=== PATIENT | female | born 1950 | race Caucasian/White ===

== ENCOUNTER 2020-10-29 04:48 | Inpatient (IN) | payer OTHER ==
[~2020-10-29] VITALS: Ht 162.6 cm; Wt 65.4 kg
[2020-10-29] VITALS (19 sets, daily range): BP systolic 134–172; BP diastolic 69–105
[~2020-10-29 04:48] MED LIST: CYMBALTA20 MG; NORCO 5-325 TA1 EACH PO; ZOFRAN ODT4 MG PO
[2020-10-29] MEDS ORDERED: CYMBALTA60 MG PO (04:58)
[2020-10-29] MEDS ORDERED: LOVASTATIN 20 M20 MG PO (04:59)
[2020-10-29] MEDS ORDERED: SPIRONOLACTONE100 M3 PO (05:00)
[2020-10-29] MEDS ORDERED: COMBIGAN EYE DR10 ML EA. EYE (05:01)
[2020-10-29] MEDS ORDERED: GLIMEPIRIDE4 MG PO (05:01)
[2020-10-29 05:16] LABS: EOSINOPHILS 5.3 % (0.0-3.0); HEMATOCRIT 42.6 % (37.0-47.0); LYMPHOCYTES 32.5 % (24.0-44.0); MCH 27.1 pg (26.0-34.0); MCHC 32.8 g/dL (28.0-37.0); MCV 82.7 fL (80.0-100.0); MONOCYTES 6.3 % (1.0-8.0); PLATELET COUNT 355 thou/uL (150-400); POLYS 54.9 % (36.0-66.0); RBC 5.16 mil/uL (4.20-5.00); RDW 15.5 % (10.5-14.5)
[2020-10-29 05:22] LABS: CALCIUM 8.9 mg/dL (8.5-10.1); CREATININE 1.4 mg/dL (0.6-1.0); POTASSIUM 3.9 mmol/L (3.5-5.1)
[2020-10-29 05:31] LABS: APTT 21.7 Seconds (24.5-32.8); INR 0.94; PROTIME 10.3 Seconds (9.3-11.4)
[2020-10-29 05:32] LABS: ALBUMIN 3.5 g/dL (3.4-5.0); TOTAL BILIRUBIN 0.2 mg/dL (0.2-1.0); TOTAL PROTEIN 7.4 g/dL (6.4-8.2); TROPONIN-I 0.25 ng/mL (<0.06)
[2020-10-29 07:27] LABS: CHOLESTEROL 224 mg/dL (<200); HDL CHOLESTEROL 44 mg/dL (>40); TC:HDL 5.1 Ratio (Not establshd); TRIGLYCERIDE 492 mg/dL (<150); VLDL 98 mg/dL (<40)
--- NOTE | 2020-10-29 09:02 | CATHLAB ---
[facility] [place] [address] INVASIVE PROCEDURE REPORT Name: KRISTY LORENZANA Room #: 213-P ADM IN M.R.#: [id number] Admission: 10/29/20 Attend Phys: Roberto Reid MD Discharge: Date of : 50 Report #: [id number] THIS REPORT FOR: cc: Kb Aguilar MD, Steven E. MD Lundgren, Craig H. MD [facility] ~ APPROVED REPORT Study performed: 10/29/2020 04:59:38 Patient Details Patient Status: ED Room #: The patient is a 69 year-old female Event Personnel Howie Lane Laboratory Immunologist, Ty Luna RN, Nilda Carr Monitor Susan De La Fuente RTR, Domingo howell Craig Laboratory Immunologist Procedures Performed Art Access - R femoral artery* Left Heart Cath w/or w/o Coronaries [id number] [facility] SHANNAN Place w/wo Plasty Single LAD [id number] SHANNAN Place w/wo Plasty Single CIRC [id number] Hemostasis w/ Mynx Indication Chest pain, STEMI Procedure Narrative The patient was brought emergently to the Cardiac Catheterization Laboratory and was prepped and draped in a sterile manner. The Right Groin^ was infiltrated with 1% Lidocaine subcutaneous anesthesia. A PINNACLE 6FR Sheath #[id number] sheath was inserted into the RFA^. Coronary angiography was performed using coronary diagnostic catheters. The right coronary system was accessed and visualized with a JR4 catheter. The left coronary system was accessed and visualized with a JL4 catheter. The left ventricle was accessed and visualized with a ANGLE PIG catheter. Left ventriculogram was performed in 30 degree projection. There was no hematoma. Intraoperative Conscious Sedation Sedation start time: 529 Case end Time: 633 Fluoro Time: 12.21 minutes Dose: DAP 52087.80 cGycm2 1681 mGy [facility] [place] [address] INVASIVE PROCEDURE REPORT Name: KRISTY LORENZANA Room #: 213-P [facility] IN M.R.#: [id number] Admission: 10/29/20 Attend Phys: Ashlie Monzon Discharge: Date of : 50 Report #: [id number] Contrast Type and Amount: Visipaque 385 ml Coronary Angiography The patient's coronary anatomy is left dominant. Diagnostic Cath Left Main Large, normal left main LAD Occluded LAD at its origin. After stenting of the ostium of the LAD, mild-moderate 30-40% scattered proximal and mid vessel LAD plaquing noted Circumflex Large, dominant circumflex. Mild 20 to 30% proximal plaquing 90% distal circumflex stenosis before the origin of the posterior descending OM1 Large OM 1 with mild proximal plaquing OM2 Moderately large second marginal branch, angiographically normal L PDA Normal posterior descending Right Coronary Small nondominant right coronary, 30-40% mid vessel plaquing Left Ventriculography The left ventricle is mildly dilated in size with abnormal contractility. The left ventricular ejection fraction is estimated to be 40%. Left ventricular wall motion abnormalities are present. There is no mitral insufficiency. Anterior apical hypokinesis Hemodynamics The aortic pressure is 183/104 mmHg with a mean of 95 mmHg. The left ventricular pressure is 175/42 mmHg with a mean of mmHg. The left ventricular end diastolic pressure is 44 mmHg. There was no gradient across the aortic valve upon pullback. PCI Technique Lesion Anticoagulation was achieved with Heparin, Integrilin. Patient was preloaded with Effient. Percutaneous coronary intervention was performed on the proximal left anterior descending artery segment. The lesion stenosis prior to intervention was 100% with STEPH 0 flow. A LAUNCHER 6FR EBU 3.5 #[id number] Guide Catheter was used to engage the LAD ostium. A Luge Wire .014 x 182CM #[id number] Interventional Guidewire was used to cross the lesion. BALLOON DILATION A Balloon catheter Euphora RX 2.5 x 12 #[id number] was inserted and inflated up to 12.00atm for 30seconds. [facility] [address] [place] [address] INVASIVE PROCEDURE REPORT Name: KRISTY LORENZANA Room #: 213-P [facility] IN M.R.#: [id number] Admission: 10/29/20 Attend Phys: Ashlie Monzon Discharge: Date of : 50 Report #: [id number] STENT DEPLOYMENT A stent RESOLUTE TANNA RX 3.0 X 15 #[id number] was inserted and inflated up to 14.00atm for 33seconds. POST STENT DEPLOYMENT BALLOON DILATION A Balloon catheter TREK NC RX 3.0 X 15 #[id number] was inserted and inflated up to 20.00atm for 35seconds. Additional Inflation: 20.00atm for 15seconds. Final angiography reveals 0 % stenosis with STEPH 3 flow. PCI Technique Lesion 2 Percutaneous Coronary Intervention was performed on the distal circumflex artery segment. The lesion stenosis prior to intervention was 90% with STEPH 3 flow. A LAUNCHER 6FR EBU 3.5 #[id number] Guide Catheter was used to engage the Left main ostium. A Luge Wire .014 x 182CM #[id number] Interventional Guidewire was used to cross the lesion. Balloon Dilation A Balloon catheter Euphora RX 2.5 x 12 #[id number] was inserted and inflated up to 8atm for 20seconds. Stent Deployment A stent TREK NC RX 2.5 X 12 #[id number] was inserted and inflated up to 16atm for 28seconds. Post Stent Deployment Balloon Dilation A Balloon catheter TREK NC RX 2.5 X 12 #[id number] was inserted and inflated up to 18atm for 34seconds. Final angiography reveals 0 % stenosis with STEPH 3 flow. Conclusion 1. Moderate left ventricular dysfunction with anterior and apical hypokinesis. EF 40% 2. Acute systolic heart failure 3. Normal left main 4. Occluded ostial LAD stented with a 3.0 x 15 mm Resolute medicated stent. STEPH-3 flow reestablished 5. Dominant circumflex with 90% distal stenosis, stented with a 2.5 x 12 mm Resolute stent 6. Small, nondominant right coronary with moderate plaquing [facility] [address] [place] [address] INVASIVE PROCEDURE REPORT Name: KRISTY LORENZANA Room #: 213-P ADM IN M.R.#: [id number] Admission: 10/29/20 Attend Phys: Ashlie Monzon Discharge: Date of : 50 Report #: [id number] Recommendations Smoking Cessation Cardiac Rehabilitation Referral Aggressive Medical Therapy <ELECTRONICALLY SIGNED> By: Howie Lane MD, [facility] 10/29/[address] MD, FACC /INF
--- NOTE | 2020-10-29 09:53 | HC ---
[facility] [place] [address] [place] [address] CONSULTATION Name: KRISTY LORNEZANA Room #: 213-P ADM IN M.R.#: [id number] Admission: 10/29/20 Attend Phys: Roberto Reid MD Discharge: Date of : 50 Report #: [id number] THIS REPORT FOR: cc: Kb Aguilar MD,Kb Lane,Howie Hauser MD [facility] ~ DATE OF SERVICE: 10/29/2020 REASON FOR CONSULTATION: Chest pain. HISTORY OF PRESENT ILLNESS: The patient is a 69-year-old smoker with diabetes, who presented with midsternal chest pain. This was described as a pressure-like sensation, starting about an hour ago. Paramedics were summoned and an EKG in the field demonstrated anteroseptal ST segment elevation and reciprocal inferior ST depression. Code STEMI was activated. She has ongoing midsternal chest pain. She denies orthopnea or paroxysmal nocturnal dyspnea. She has had nausea and vomiting with the discomfort. ALLERGIES: SHE IS ALLERGIC TO CODEINE, MORPHINE AND DEMEROL. MEDICATIONS: Include glimepiride 4 mg daily, lovastatin 20 mg daily, spironolactone 100 mg daily, Cymbalta 60 mg daily, and Combigan eyedrops. PAST MEDICAL HISTORY: Medical records have been reviewed and include a history of remote abdominal surgery, nephrolithiasis, diabetes, hypertension, abdominal adhesions requiring adhesiolysis. SOCIAL HISTORY: She is a smoker. Retired, worked at [employer]. FAMILY HISTORY: Unremarkable for premature coronary artery disease. REVIEW OF SYSTEMS: All systems negative except as that noted above. PHYSICAL EXAMINATION: GENERAL: Reveals an anxious woman in moderate distress. VITAL SIGNS: Blood pressure is 133/92, heart rate of 79 and regular, saturations are 98% on room air. HEENT: There are neither xanthelasma, subcutaneous xanthomata, oral mucosal or digital cyanosis or kyphoscoliosis present. CHEST: Reveals clear lung salcido. CARDIAC: Regular rate and rhythm with normal S1 and distant heart tones. ABDOMEN: Soft and nontender. EXTREMITIES: Without cyanosis, clubbing or edema. Radial pulses are 2+. NEUROLOGIC: She is alert with a nonfocal exam. [facility] [address] [place] [address] CONSULTATION Name: KRISTY LORENZANA Room #: [address] [place] [address] IN .R.#: [id number] Admission: 10/29/20 Attend Phys: Roberto Reid MD Discharge: Date of : 50 Report #: [id number] LABORATORY DATA: EKG as detailed above. Lab work and radiographic studies remain pending. IMPRESSION: 1. Acute anterior myocardial infarction 2. Acute systolic heart failure. 3. Hypertension. 4. Diabetes. 5. Tobacco dependency. RECOMMENDATIONS: 1. Urgent coronary angiography. 2. Therapy with anticoagulants and antiplatelet therapy. 3. The angiographic procedure was discussed in detail including its associated risks. After a thorough discussion of the procedure, its risks and alternatives and after answering her questions, she is agreeable to proceeding. 65cc time. Coordination of care with staff, ED, discussion with family <ELECTRONICALLY SIGNED> By: Howie Lane MD, FACC 10/29/[address] MD, FACC /nt
--- NOTE | 2020-10-29 15:05 | NUR ---
PT ADMITED FROM ART TEACHER. ADMISSION HX AND ASSESSMENT COMPLETED. RIGHT GROIN INCISION C/D/I. NO HEMATOMA NOTED. POST OP INSTRUCTIONS GIVEN TO PT. PT VERBERLISED UNDERSTANDING.
--- NOTE | 2020-10-29 15:29 | EKG ---
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: GER : 1950 Requested By: Cheng Brock Order Number: [id number] MD: Olivier Shipman Measurements Intervals [place] Rate: 81 P: 61 MD: 164 QRS: 16 QRSD: 138 T: 19 QT: 444 QTc: 516 Interpretive Statements Sinus rhythm Ventricular premature complex LAE, consider biatrial enlargement Right bundle branch block Anteroseptal infarct, recent Lateral leads are also involved Compared to ECG 03/13/2000 11:31:55 Ventricular premature complex(es) now present Right bundle-branch block now present Myocardial infarct finding now present T-wave abnormality no longer present Electronically Signed On 10-29-2020 15:29:30 CDT by Olivier Shipman [email or web address] <ELECTRONICALLY SIGNED> By: Olivier Shipman MD, [facility] 10/29/20 1529 0450 0450 Olivier Shipman MD, [facility] /EPI
--- NOTE | 2020-10-29 15:32 | EKG ---
[place] [address] [address] [address] [facility] [place] [address] ELECTROCARDIOGRAM REPORT Name: KRISTY LORENZANA Room #: 213-P ADM IN M.R.#: [id number] Admission: 10/29/20 Attend Phys: Roberto Reid MD Discharge: Date of : 50 Report #: [id number] [facility] Test Date: 2020-10-29 Test Time: 13:55:24 Pat Name: KRISTY LORENZANA Department: Room: 213 P Gender: F Research Archaeologist: LORENZO : 1950 Requested By: Howie Lane Order Number: [id number] : Olivier Shipman Measurements Intervals [place] Rate: 79 P: 52 VT: 147 QRS: 85 QRSD: 128 T: 107 QT: 425 QTc: 488 Interpretive Statements Sinus rhythm Right bundle branch block Probable anteroseptal infarct, recent Compared to ECG 10/29/2020 04:50:54 Ventricular premature complex(es) no longer present Myocardial infarct finding still present Electronically Signed On 10-29-2020 15:31:43 CDT by Olivier Shipman [email or web address] <ELECTRONICALLY SIGNED> By: Olivier Shipman MD, [facility] 10/29/20 1531 1355 1355 Olivier Shipman MD, [facility] /EPI
[2020-10-29 22:06] LABS: GLYCOHEMOGLOBIN (HGB A1C) 7.9 % (4.8-5.6)
[2020-10-30 03:27] LABS: ABSOLUTE NEUTROPHILS 16.1 thou/uL (1.4-8.2); BASOPHILS 0.3 % (0.0-2.0); EOSINOPHILS 0.7 % (0.0-3.0); HEMATOCRIT 39.6 % (37.0-47.0); HEMOGLOBIN 12.5 gm/dL (12.0-15.0); LYMPHOCYTES 11.3 % (24.0-44.0); MCH 26.2 pg (26.0-34.0); MCHC 31.7 g/dL (28.0-37.0); MCV 82.8 fL (80.0-100.0); MONOCYTES 5.7 % (1.0-8.0); PLATELET COUNT 289 thou/uL (150-400); RBC 4.79 mil/uL (4.20-5.00); RDW 15.1 % (10.5-14.5); WBC 19.7 thou/uL (4.0-11.0)
[2020-10-30 03:39] VITALS: BP 140/78
[2020-10-30 03:57] LABS: ALBUMIN 3.2 g/dL (3.4-5.0); CALCIUM 8.4 mg/dL (8.5-10.1); CREATININE 1.1 mg/dL (0.6-1.0); TOTAL BILIRUBIN 0.6 mg/dL (0.2-1.0); TOTAL PROTEIN 6.7 g/dL (6.4-8.2)
[2020-10-30 04:13] LABS: TROPONIN-I 76.37 ng/mL (<0.06)
--- NOTE | 2020-10-30 05:38 | NUR ---
PATIENT CARES WERE ASSUMED AT SHIFT CHANGE. PATIENT WAS ASSESSED AND MEDS WERE PASSED. PATIENT IS UP TO BRP'S WITH ONE ASSISTT. PATIENT C/O FEELING VERY TIRED. SHE DID SLEEP THE MAJORITY OF THIS SHIFT. PATIENT WOULD BENEFIT FROM ANOTHER NIGHTS STAY. ROUNDS WERE DONE. PATIENT CONTINUES TO PROGRESS TOWARDS HER DISCHARGE GOALS.
[2020-10-30 07:36] VITALS: BP 142/83
--- NOTE | 2020-10-30 08:15 | NUR ---
ASSUMMED CARE OF THIS PATIENT FROM THE NIGHT NURSE, KRISTY KHAN. PATIENT C/O GENERALIZED WEAKNESS AND CHEST PAIN THROUGH TO HER BACK, WORSE WITH PALPATION. INTERMITTENTLY DIAPHORETIC. EKG DONE. WILL CONTINUE TO MONITOR.
[2020-10-30] MEDS ORDERED: EFFIENT10 MG PO (08:46)
[2020-10-30] MEDS ORDERED: BAYER CHEWABLE81 MG PO (08:46)
[2020-10-30] MEDS ORDERED: CARVEDILOL12.5 MG PO (08:46)
[2020-10-30] MEDS ORDERED: LISINOPRIL10 MG PO (08:46)
[2020-10-30] MEDS ORDERED: LIPITOR40 MG PO (08:55)
--- NOTE | 2020-10-30 10:00 | NUR ---
JOSELIN PRESS OPERATOR FOR CARDIOLOGY NOTIFIED OF PATIENT'S STATUS AND IN TO EXAMINE PATIENT. PATIENT ASSISTED BACK TO BED AND BEDSIDE ECHO IN PROGRESS.
--- NOTE | 2020-10-30 10:52 | 2DMMODE ---
[facility] [place] [address] 2 D/M-MODE ECHOCARDIOGRAM Name: KRISTY LORENZANA Room #: 213-P ADM IN M.R.#: [id number] Admission: 10/29/20 Attend Phys: Roberto Reid MD Discharge: Date of : 50 Report #: [id number] THIS REPORT FOR: cc: Kb Aguilar MD, Steven E. MD Lundgren, Craig H. MD [facility] ~ APPROVED REPORT Study performed: 10/30/2020 09:56:04 EXAM: Comprehensive 2D, Doppler, and color-flow Echocardiogram Patient Location: Bedside Room #: 213 Status: routine BSA: 1.72 HR: 84 bpm BP: 142/83 mmHg Rhythm: NSR Other Information Study Quality: Good Indications STEMI. Status post PCI. 2D Dimensions RVDd: 27.01 mm IVSd: 10.93 (7-11mm) LVOT Diam: 18.80 (18-24mm) LVDd: 37.96 mm PWd: 9.59 (7-11mm) LVDs: 28.94 (25-40mm) Aortic Root: 33.21 mm Volumes Left Atrial Volume (Systole) Single Plane 4CH: 23.72 mL Single Plane 2CH: 28.19 mL LA ESV Index: 16.00 mL/m2 Aortic Valve AoV Peak Carlos.: 1.43 m/s AO Peak Gr.: 8.22 mmHg LVOT Max P.48 mmHg LVOT Max V: 1.06 m/s SIMA Vmax: 2.05 cm2 [facility] [address] [address] 2 D/M-MODE ECHOCARDIOGRAM Name: KRISTY LORENZANA Room #: 213-P ADM IN M.R.#: [id number] Admission: 10/29/20 Attend Phys: Ashlie Monzon Discharge: Date of : 50 Report #: [id number] Mitral Valve E/A Ratio: 0.7 MV Decel. Time: 169.24 ms MV E Max Carlos.: 0.87 m/s MV A Carlos.: 1.30 m/s MV PHT: 49.08 ms IVRT: 89.97 ms Pulmonary Valve PV Peak Carlos.: 1.14 m/s PV Peak Gr.: 5.24 mmHg Pulmonary Vein P Vein S: 0.72 m/s P Vein A: 0.49 m/s P Vein D: 0.39 m/s P Vein A Dur.: 141.9 msec P Vein S/D Ratio: 1.85 Tricuspid Valve TR Peak Carlos.: 2.47 m/s RAP Estimate: 5.00 mmHg TR Peak Gr.: 24.47 mmHg PA Pressure: 29.00 mmHg Left Ventricle The left ventricle is normal size. There is normal left ventricular wall thickness. Left ventricular systolic function is moderately decreased. Mid to distal septal and anterior wall hypokinesis. LVEF 35-40%. Mild diastolic dysfunction Right Ventricle The right ventricle is normal size. The right ventricular systolic function is normal. Atria The left atrium size is normal. The right atrium size is normal. Aortic Valve The aortic valve is normal in structure. No aortic regurgitation is present. There is no aortic valvular stenosis. Mitral Valve The mitral valve is normal in structure. There is no mitral valve regurgitation noted. No evidence of mitral valve stenosis. Tricuspid Valve The tricuspid valve is normal in structure. Trace tricuspid regurgitation. Estimated PAP is 30mmHg. [facility] [address] [place] [address] 2 D/M-MODE ECHOCARDIOGRAM Name: KRISTY LORENZANA Room #: 213-P ADM IN M.R.#: [id number] Admission: 10/29/20 Attend Phys: Ashlie Monzon Discharge: Date of : 50 Report #: [id number] Pulmonic Valve The pulmonary valve is normal in structure. Trace pulmonic regurgitation. Great Vessels The aortic root is normal in size. The ascending aorta is normal in size. IVC is normal in size and collapses >50% with inspiration. Pericardium There is no pericardial effusion. <Conclusion> Left ventricular systolic function is moderately decreased. Mid to distal septal and anterior wall hypokinesis. LVEF 35-40%. Mild diastolic dysfunction The aortic valve is normal in structure. No aortic regurgitation or stenosis The mitral valve is normal in structure. No mitral valve regurgitation. Trace tricuspid regurgitation. Estimated pulmonary artery pressure of 30mmHg. There is no pericardial effusion. <ELECTRONICALLY SIGNED> By: Howie Lane MD, FACC 10/30/[address] MD, FACC /INF
[2020-10-30 11:25] VITALS: BP 114/55
--- NOTE | 2020-10-30 14:52 | EKG ---
[address] [address] [place] [address] ELECTROCARDIOGRAM REPORT Name: KRISTY LORENZANA Room #: 213- ADM IN M.R.#: [id number] Admission: 10/29/20 Attend Phys: Roberto Reid MD Discharge: Date of : 50 Report #: [id number] [facility] Test Date: 2020-10-30 Test Time: 07:38:51 Pat Name: KRISTY LORENZANA Department: Room: 213 P Gender: F Guest Services Attendant: CORA : 1950 Requested By: Howie Lane Order Number: [id number] MD: Alan Tristan Measurements Intervals [place] Rate: 83 P: 46 MT: 140 QRS: 72 QRSD: 126 T: 92 QT: 425 QTc: 500 Interpretive Statements Sinus rhythm Right bundle branch block Probable anteroseptal infarct, recent Lateral leads are also involved Compared to ECG 10/29/2020 13:55:24 No significant changes Electronically Signed On 10-30-2020 14:52:37 CDT by Alan Tristan [email or web address] <ELECTRONICALLY SIGNED> By: Alan Tristan MD 10/30/20 1452 7 7 Alan Tristan MD /JAS
[2020-10-30 15:23] VITALS: BP 120/63
--- NOTE | 2020-10-30 17:11 | NUR ---
PATIENT IS PROGRESSING TOWARDS OUTCOME GOALS SHE IS LOOKING AND FEELING BETTER SLEEPING THIS AFTERNOON. COLOR PINK AND SKIN IS WARM AND DRY.
[2020-10-30 19:49] VITALS: BP 110/66
[2020-10-30 23:20] VITALS: BP 108/63
[2020-10-31 04:24] VITALS: BP 129/63
[2020-10-31 05:16] LABS: CALCIUM 8.6 mg/dL (8.5-10.1); CREATININE 1.2 mg/dL (0.6-1.0); POTASSIUM 4.3 mmol/L (3.5-5.1)
[2020-10-31 07:20] VITALS: BP 104/56
[2020-10-31 11:45] VITALS: BP 101/61
[2020-10-31 15:30] VITALS: BP 145/58
--- NOTE | 2020-10-31 17:45 | NUR ---
ASSUMED CARE SHIFT CHANGE. ASSESSMENTS CHARTED.MEDS GIVEN PER SEP. VSS BP LOW THIS AM. BP MEDS HELD. BP OK EVENING. DENIES CP, SOB. R GROIN SITE NITA BALND CDI NO HEMATOMA. BRUISING NOTED. BLOOD SUGAR LOW IN 60S PT ASYMPTOMATIC, JUICE GIVEN, BLOOD SUGARS STABILIZED. PLAN FOR POSSIBLE DC TOMORRW. CONTINUING POC. WILL PASS ON REPORT TO SULEIMAN KHAN.
[2020-11-01] VITALS (7 sets, daily range): BP systolic 78–120; BP diastolic 49–66
--- NOTE | 2020-11-01 02:29 | NUR ---
PT DENIES ANY PAIN THIS EVENING LOOKING TIRED LIKE SHE HASNT SLEPT SLEEPING PILL GIVEN TO AIR WITH SLEEPING. NEWLY DIABETIC BLOOD SUGAR WAS LOW SO SNACK PROVIDED. LUNGS CLEAR RIGHT GROIN SITE BRUISING NOTED AND OUTLINED NO NEW BRUISING. CALL LIGHT WITHIN REACH IF NEEDS ASSISTANCE PER NURSING.
[2020-11-01 05:20] LABS: ABSOLUTE NEUTROPHILS 10.5 thou/uL (1.4-8.2); BASOPHILS 0.4 % (0.0-2.0); EOSINOPHILS 2.7 % (0.0-3.0); HEMATOCRIT 35.4 % (37.0-47.0); HEMOGLOBIN 11.5 gm/dL (12.0-15.0); LYMPHOCYTES 15.8 % (24.0-44.0); MCH 26.5 pg (26.0-34.0); MCHC 32.4 g/dL (28.0-37.0); MCV 81.7 fL (80.0-100.0); MONOCYTES 5.4 % (1.0-8.0); PLATELET COUNT 252 thou/uL (150-400); POLYS 75.7 % (36.0-66.0); RBC 4.33 mil/uL (4.20-5.00); RDW 15.1 % (10.5-14.5); WBC 13.9 thou/uL (4.0-11.0)
[2020-11-01 05:40] LABS: ALBUMIN 2.8 g/dL (3.4-5.0); CALCIUM 8.7 mg/dL (8.5-10.1); CREATININE 1.3 mg/dL (0.6-1.0); MAGNESIUM 2.2 mg/dL (1.8-2.4); PHOSPHORUS 3.7 mg/dL (2.5-4.9); POTASSIUM 3.8 mmol/L (3.5-5.1); TOTAL BILIRUBIN 0.5 mg/dL (0.2-1.0); TOTAL PROTEIN 6.6 g/dL (6.4-8.2)
--- NOTE | 2020-11-01 11:04 | EKG ---
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
--- NOTE | 2020-11-01 17:59 | NUR ---
RECEIVED PT'S CARE AROUND 0715; PT. ON BED; RESTING WITH EYES CLOSED; EQUAL CHEST RISING; SR ON THE MONITOR; BG LOW DURING AM; JUICE PROVIDED; ENCOURAGE TO EAT BREAKFAST; DURING AM ASSESSMENT PT. AOX4; NO C/O PAIN; SBP ON THE 90s; BP MEDICATION HOLD; STAND UP ORTHOSTATIC BP ON THE 70s; PHYSICIAN AWARE; PIERCE HOSE ORDERED; PT. EDUCATED ABOUT EATING BETWEEN MEALS; EDUCATED ABOUT WEARING SUCKS DURING AMBULATION; ST. UNDERSTANDING; BG 51 DURING THE EVENING; PHYSICIAN NOTIFIED; ORDERS ON PLACED; FLUIDS STARTED; FALL PRECAUTIONS APPLIED; PT. NOTIFIED AND EDUCATED ABOUT CALLING BEFORE GETTING UP FROM; ST. UNDERSTANDING; DURING THE EVENING SBP ON THE 120s; SCHEDULED BP GIVEN; ASSESSMENT CHARGED; FOLLOWING POC; WILL PASS ON REPORT;
[2020-11-02] VITALS (7 sets, daily range): BP systolic 76–116; BP diastolic 50–81
[2020-11-02 04:51] LABS: ABSOLUTE NEUTROPHILS 7.3 thou/uL (1.4-8.2); BASOPHILS 0.4 % (0.0-2.0); EOSINOPHILS 4.3 % (0.0-3.0); HEMATOCRIT 34.6 % (37.0-47.0); HEMOGLOBIN 11.3 gm/dL (12.0-15.0); LYMPHOCYTES 20.2 % (24.0-44.0); MCH 26.7 pg (26.0-34.0); MCHC 32.7 g/dL (28.0-37.0); MCV 81.8 fL (80.0-100.0); PLATELET COUNT 261 thou/uL (150-400); POLYS 67.1 % (36.0-66.0); RBC 4.22 mil/uL (4.20-5.00); RDW 15.2 % (10.5-14.5); WBC 10.9 thou/uL (4.0-11.0)
[2020-11-02 05:01] LABS: CALCIUM 8.4 mg/dL (8.5-10.1); CREATININE 1.2 mg/dL (0.6-1.0); MAGNESIUM 2.1 mg/dL (1.8-2.4); PHOSPHORUS 4.7 mg/dL (2.5-4.9)
--- NOTE | 2020-11-02 07:37 | NUR ---
PATIENTS CARES WERE ASSUMED AT SHIFT CHANGE. PATIENT WAS ASSESSED AND MEDS WERE PASSSED. PATIENTREFUSED THE STOOL SOFTNER AND THE INSULIN THAT WAS ORDERED, A SNACK AT HS WAS GIVEN TO PREVENT A DROP IN HER ACCU CHECK IN THE MORNING. ROUNDING WAS DONE. THE BED ALARM IS ON.
--- NOTE | 2020-11-02 16:34 | NUR ---
ASSUMED CARE SHIFT CHANGE. ASSESSMENTS CHARTED.MEDS GIVEN PER MAR. VSS DENIES PAIN. DENIES CP/SOB. RIGHT GROIN REMAINS BRUISED. NO HEMATOMA. BP LOW THIS AM, BP MEDS HELD. PHYSICIAN NOTIFIED, BP STABLE. PLAN FOR REHAB EVAL, POSSIBLE 5N. DENIES NEEDS. CONTINUING POC. WILL PASS ON REPORT TO SULEIMAN KHAN.
--- NOTE | 2020-11-02 17:18 | NUR ---
met with patient who admits with chest pain. Patient reports she lives in home with son and granddtr. Granddtr is 6 years old. 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 She is too high level for acute rehab. Patient wants to return home at dc. She is hoping to dc home tomorrow. She is open to home health care. casemgt following.
[2020-11-03 04:33] VITALS: BP 101/45
--- NOTE | 2020-11-03 05:18 | NUR ---
PATIENTS CARE WAS ASSUMED AT SHIFT CHANGE. PATIENT WAS ASSESSED AND MEDS WERE PASSED. PATIENT IS VERY PLEASENT LADY. PATIENT DENIES ANY CHEST PAIN AT THIS TIME. ACCU CHECKS APPERS TO STABLE OUT. PATIENT PROGRESSING WELL TOWARDS DISCHARGE. ROUNDS WERE DONE. THE BED ALARM IS ON THIS SHIFT.
[2020-11-03] MEDS ORDERED: COREG6.25 MG PO (07:48)
[2020-11-03] MEDS ORDERED: LISINOPRIL5 MG PO (07:48)
[2020-11-03 08:00] VITALS: BP 99/62
--- NOTE | 2020-11-03 11:13 | NUR ---
AAOX4. DENIES CP, SOA. SR PER TELE. DR. ALEJANDRE DISCHARGING TO HOME.
--- NOTE | 2020-11-03 11:18 | NUR ---
AAO4. DENIES CP, SOA. DR. ALEJANDRE DISCHARGING TO HOME.
[2020-11-03] MEDS ORDERED: GLUCOTROL5 MG PO (11:19)
[2020-11-03 11:50] VITALS: BP 102/51
[2020-11-03 12:19] VITALS: BP 102/51
[2020-11-03 12:20] VITALS: BP 102/51
[2020-11-03 12:55] VITALS: BP 102/51
--- NOTE | 2020-11-03 12:59 | NUR ---
Spoke with patient plan for home with HH care. Verified address and PCP. patient with no preference of home health agency.
--- NOTE | 2020-11-03 14:50 | NUR ---
REFERRAL FAXED TO [facility] HH SPOKE WITH FEI IN INTAKE SHE CAN ACCEPT. FAXED DC ORDERS/SUMMARY TO [facility] SPOKE WITH FEI SHE RECEIVED ORDERS AND WILL ARRANGE VISITS WITH PT.
== END 2020-11-03 14:22 | disposition home health service (06) | DRG 246 ==
LOC: ER 04:48 → EROBS 05:19 → 2N 05:26
PROVIDERS: Emergency Medicine; Internal Medicine; Nurse Practitioner; ADMIT Hospitalist; ATTEND Hospitalist
PROC: B215YZZ Fluoroscopy of Left Heart using Other Contrast (ICD-10-PCS; principal; 2020-10-29)
PROC: B211YZZ Fluoroscopy of Multiple Coronary Arteries using Other Contrast (ICD-10-PCS; principal; 2020-10-29)
PROC: 027135Z Dilation of Coronary Artery, Two Arteries with Two Drug-eluting Intraluminal Devices, Percutaneous Approach (ICD-10-PCS; principal; 2020-10-29)
PROC: 4A023N7 Measurement of Cardiac Sampling and Pressure, Left Heart, Percutaneous Approach (ICD-10-PCS; principal; 2020-10-29)
DX: I21.09 ST elevation (STEMI) myocardial infarction involving other coronary artery of anterior wall (principal); I50.23 Acute on chronic systolic (congestive) heart failure; N17.9 Acute kidney failure, unspecified; I13.0 Hypertensive heart and chronic kidney disease with heart failure and stage 1 through stage 4 chronic kidney disease, or unspecified chronic kidney disease; I47.2 Ventricular tachycardia; I25.5 Ischemic cardiomyopathy; E78.00 Pure hypercholesterolemia, unspecified; E78.5 Hyperlipidemia, unspecified; E11.22 Type 2 diabetes mellitus with diabetic chronic kidney disease; K21.9 Gastro-esophageal reflux disease without esophagitis; F17.210 Nicotine dependence, cigarettes, uncomplicated; N18.9 Chronic kidney disease, unspecified; I25.10 Atherosclerotic heart disease of native coronary artery without angina pectoris; I95.1 Orthostatic hypotension; E11.649 Type 2 diabetes mellitus with hypoglycemia without coma; Z20.822 Contact with and (suspected) exposure to COVID-19; Z85.43 Personal history of malignant neoplasm of ovary; Z90.710 Acquired absence of both cervix and uterus; Z79.84 Long term (current) use of oral hypoglycemic drugs; Z79.899 Other long term (current) drug therapy; Z88.5 Allergy status to narcotic agent; Z88.8 Allergy status to other drugs, medicaments and biological substances
CPT/HCPCS: 10081

== ENCOUNTER → 2020-11-27 | Outpatient (CLI) | payer OTHER ==
[~2020-11-27] MED LIST changes: +BAYER CHEWABLE81 MG PO; +CARVEDILOL12.5 MG PO; +COMBIGAN EYE DR10 ML EA. EYE; +COREG6.25 MG PO; +CYMBALTA60 MG PO; +EFFIENT10 MG PO; +GLIMEPIRIDE4 MG PO; +GLUCOTROL5 MG PO; +LIPITOR40 MG PO; +LISINOPRIL10 MG PO; +LISINOPRIL5 MG PO; +LOVASTATIN 20 M20 MG PO; +SPIRONOLACTONE100 M3 PO
== END ==
LOC: SJCVC 13:06
PROVIDERS: ATTEND Internal Medicine
DX: R94.31 Abnormal electrocardiogram [ECG] [EKG] (principal); I45.10 Unspecified right bundle-branch block; I25.10 Atherosclerotic heart disease of native coronary artery without angina pectoris; I25.5 Ischemic cardiomyopathy; E78.5 Hyperlipidemia, unspecified; E11.51 Type 2 diabetes mellitus with diabetic peripheral angiopathy without gangrene; I25.2 Old myocardial infarction; F17.210 Nicotine dependence, cigarettes, uncomplicated; Z79.82 Long term (current) use of aspirin; Z79.899 Other long term (current) drug therapy

== ENCOUNTER → 2020-12-23 | Outpatient (CLI) | payer OTHER | LOC: SJCVCIMAG 08:18 | PROVIDERS: ATTEND Nuclear Medicine Nuclear Cardiology | DX: I65.23 Occlusion and stenosis of bilateral carotid arteries (principal); M79.661 Pain in right lower leg; M79.662 Pain in left lower leg ==

== ENCOUNTER → 2020-12-29 | Outpatient (CLI) | payer OTHER ==
[~2020-12-29] MED LIST changes: +PROTONIX40 M2 PO
== END ==
LOC: SJCVC 09:05
PROVIDERS: ATTEND Nuclear Medicine Nuclear Cardiology
DX: I77.9 Disorder of arteries and arterioles, unspecified (principal); I25.10 Atherosclerotic heart disease of native coronary artery without angina pectoris; E78.00 Pure hypercholesterolemia, unspecified; I10 Essential (primary) hypertension; F17.200 Nicotine dependence, unspecified, uncomplicated; E11.9 Type 2 diabetes mellitus without complications; I77.811 Abdominal aortic ectasia; I73.9 Peripheral vascular disease, unspecified; I25.2 Old myocardial infarction; E78.5 Hyperlipidemia, unspecified; Z88.5 Allergy status to narcotic agent; Z88.0 Allergy status to penicillin; Z79.82 Long term (current) use of aspirin; Z79.84 Long term (current) use of oral hypoglycemic drugs; Z79.899 Other long term (current) drug therapy; Z95.5 Presence of coronary angioplasty implant and graft

== ENCOUNTER → 2020-12-30 | Outpatient (CLI) | payer OTHER ==
[~2020-12-30] VITALS: Ht 160 cm; Wt 68.5 kg
[2020-12-30 08:32] VITALS: BP 130/75
[2020-12-30 08:34] LABS: HEMATOCRIT 37.2 % (37.0-47.0); HEMOGLOBIN 12.3 gm/dL (12.0-15.0); MCV 81.8 fL (80.0-100.0); RBC 4.55 mil/uL (4.20-5.00); RDW 15.1 % (10.5-14.5); WBC 8.3 thou/uL (4.0-11.0)
[2020-12-30 08:52] LABS: CREATININE 1.7 mg/dL (0.6-1.0); POTASSIUM 4.4 mmol/L (3.5-5.1)
== END | disposition home or self-care (01) ==
LOC: CATH 07:44
PROVIDERS: ATTEND Nuclear Medicine Nuclear Cardiology
DX: I70.212 Atherosclerosis of native arteries of extremities with intermittent claudication, left leg (principal); I70.1 Atherosclerosis of renal artery; I10 Essential (primary) hypertension; I25.10 Atherosclerotic heart disease of native coronary artery without angina pectoris; E11.9 Type 2 diabetes mellitus without complications; E78.00 Pure hypercholesterolemia, unspecified; E78.5 Hyperlipidemia, unspecified; I25.2 Old myocardial infarction; K21.9 Gastro-esophageal reflux disease without esophagitis; Z98.890 Other specified postprocedural states; Z79.899 Other long term (current) drug therapy; Z87.891 Personal history of nicotine dependence; Z90.710 Acquired absence of both cervix and uterus; Z88.8 Allergy status to other drugs, medicaments and biological substances

== ENCOUNTER → 2021-03-01 | Outpatient (CLI) | payer OTHER | LOC: SJCVC 07:19 → SJCVCIMAG 10:04 → SJCVC 10:04 | PROVIDERS: ATTEND Internal Medicine | DX: R94.31 Abnormal electrocardiogram [ECG] [EKG] (principal); I45.10 Unspecified right bundle-branch block; I25.5 Ischemic cardiomyopathy; I25.10 Atherosclerotic heart disease of native coronary artery without angina pectoris; I25.2 Old myocardial infarction; E78.5 Hyperlipidemia, unspecified; I73.9 Peripheral vascular disease, unspecified; E11.51 Type 2 diabetes mellitus with diabetic peripheral angiopathy without gangrene; F17.200 Nicotine dependence, unspecified, uncomplicated; Z95.1 Presence of aortocoronary bypass graft; Z95.5 Presence of coronary angioplasty implant and graft; Z88.5 Allergy status to narcotic agent; Z88.8 Allergy status to other drugs, medicaments and biological substances; Z90.49 Acquired absence of other specified parts of digestive tract; Z79.82 Long term (current) use of aspirin; Z79.899 Other long term (current) drug therapy; Z82.49 Family history of ischemic heart disease and other diseases of the circulatory system ==

== ENCOUNTER → 2021-04-06 | Outpatient (CLI) | payer OTHER | LOC: SJCVCIMAG 08:27 | PROVIDERS: ATTEND Nuclear Medicine Nuclear Cardiology | DX: I73.9 Peripheral vascular disease, unspecified (principal); I25.10 Atherosclerotic heart disease of native coronary artery without angina pectoris; I77.9 Disorder of arteries and arterioles, unspecified; I10 Essential (primary) hypertension; I25.5 Ischemic cardiomyopathy; E11.9 Type 2 diabetes mellitus without complications; I42.9 Cardiomyopathy, unspecified; E78.5 Hyperlipidemia, unspecified; Z98.61 Coronary angioplasty status; Z82.49 Family history of ischemic heart disease and other diseases of the circulatory system; Z95.820 Peripheral vascular angioplasty status with implants and grafts; Z79.82 Long term (current) use of aspirin; Z79.899 Other long term (current) drug therapy; Z88.5 Allergy status to narcotic agent; Z88.8 Allergy status to other drugs, medicaments and biological substances; Z87.891 Personal history of nicotine dependence ==

== ENCOUNTER → 2021-07-07 | Outpatient (CLI) | payer OTHER | LOC: SJCVCIMAG 12:55 | PROVIDERS: ATTEND Nuclear Medicine Nuclear Cardiology | DX: I70.202 Unspecified atherosclerosis of native arteries of extremities, left leg (principal); I77.9 Disorder of arteries and arterioles, unspecified; I25.10 Atherosclerotic heart disease of native coronary artery without angina pectoris; I77.811 Abdominal aortic ectasia; E11.9 Type 2 diabetes mellitus without complications; E78.00 Pure hypercholesterolemia, unspecified; I10 Essential (primary) hypertension; E78.5 Hyperlipidemia, unspecified; Z82.49 Family history of ischemic heart disease and other diseases of the circulatory system; Z88.5 Allergy status to narcotic agent; Z88.8 Allergy status to other drugs, medicaments and biological substances; Z79.82 Long term (current) use of aspirin; Z79.899 Other long term (current) drug therapy; Z87.891 Personal history of nicotine dependence ==

== ENCOUNTER → 2021-07-12 | Outpatient (CLI) | payer OTHER ==
[~2021-07-12] VITALS: Ht 160 cm; Wt 66.2 kg
[2021-07-12 07:19] LABS: HEMATOCRIT 38.1 % (37.0-47.0); HEMOGLOBIN 12.2 gm/dL (12.0-15.0); MCH 25.9 pg (26.0-34.0); MCHC 31.9 g/dL (28.0-37.0); MCV 81.3 fL (80.0-100.0); RBC 4.69 mil/uL (4.20-5.00); RDW 14.1 % (10.5-14.5); WBC 8.5 thou/uL (4.0-11.0)
[2021-07-12 07:25] VITALS: BP 148/84
[2021-07-12 07:31] LABS: CALCIUM 9.1 mg/dL (8.5-10.1); CREATININE 1.3 mg/dL (0.6-1.0); POTASSIUM 4.4 mmol/L (3.5-5.1)
== END | disposition home or self-care (01) ==
LOC: CATH 06:41
PROVIDERS: ATTEND Nuclear Medicine Nuclear Cardiology
DX: I70.212 Atherosclerosis of native arteries of extremities with intermittent claudication, left leg (principal); M79.605 Pain in left leg; I70.1 Atherosclerosis of renal artery; I10 Essential (primary) hypertension; I25.10 Atherosclerotic heart disease of native coronary artery without angina pectoris; E78.00 Pure hypercholesterolemia, unspecified; J44.9 Chronic obstructive pulmonary disease, unspecified; E11.9 Type 2 diabetes mellitus without complications; I25.2 Old myocardial infarction; Z98.890 Other specified postprocedural states; Z79.899 Other long term (current) drug therapy; Z87.891 Personal history of nicotine dependence; Z90.710 Acquired absence of both cervix and uterus; Z88.8 Allergy status to other drugs, medicaments and biological substances; Z79.82 Long term (current) use of aspirin

== ENCOUNTER → 2021-09-02 | Outpatient (CLI) | payer OTHER | LOC: SJCVC 10:30 | PROVIDERS: ATTEND Internal Medicine | DX: R94.31 Abnormal electrocardiogram [ECG] [EKG] (principal); I45.10 Unspecified right bundle-branch block; I25.10 Atherosclerotic heart disease of native coronary artery without angina pectoris; I25.5 Ischemic cardiomyopathy; E78.5 Hyperlipidemia, unspecified; E11.9 Type 2 diabetes mellitus without complications; I73.9 Peripheral vascular disease, unspecified; F17.200 Nicotine dependence, unspecified, uncomplicated; Z95.1 Presence of aortocoronary bypass graft; Z98.890 Other specified postprocedural states; Z88.5 Allergy status to narcotic agent; Z88.8 Allergy status to other drugs, medicaments and biological substances; Z79.82 Long term (current) use of aspirin; Z79.899 Other long term (current) drug therapy ==